=== PATIENT | female | born 1980 | race Two or more races ===

== ENCOUNTER 2025-04-19 08:47 | Outpatient (CLI) | payer MEDICAID ==
[~2025-04-19] VITALS: Ht 170.2 cm; Wt 108.0 kg
[2025-04-19] MEDS: REGADENOSON 0.4 MG/5 ML SYRG IV ONE ×2 (09:08→10:28)
--- NOTE | 2025-04-22 14:16 | DVHSR ---
APPROVED REPORT Exam: Nuclear Stress Test BMI: 0 Stress Test Details Stress Test: Pharmacologic stress testing performed using 0.4 mg of regadenoson per 5 mL given IV over 10 seconds. HR Resting HR: 76 bpm Max Heart Rate (APMHR): 175.155667 bpm Max HR Achieved: 115 bpm Target HR (85% APMHR): 148.257335 bpm % of APMHR: 65.71 Recovery HR: 80 bpm BP Resting BP: 126/85 mmHg Recovery BP: 122/72 mmHg ECG Resting ECG: Sinus Rhythm Clinical Reason for Termination: Completed protocol Nurse Comments Recieved pt. from [employer]. A/Ox4 on RA. 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 PIV flushes well. Reviewed POC. Pt. verbalized understanding of procedure including risks and side effects, agrees for stress testing. Lexiscan stress test performed per protocol. [employer] tech administered Cardiolite. Pt. tolerated well. Pt. stable, no change on exam. VS returned to baseline. Transferred to [employer] via wheelchair w/ tech. Stress ECG Conclusion lvef 78% normal perfusion scan NM EXAM: Myocardial Perfusion REST/STRESS Imaging Protocol: Rest Tc-99m/Stress Tc-99m 1 day Resting Data Rest SPECT myocardial perfusion imaging was performed in supine position 45 minutes following the intravenous injection of 9.9 mCi of Tc-99m Sestamibi. Time of rest injection: 09:15 Date: 04/19/2025 Time of rest imagin:00 Date: 04/19/2025 Administration Route: IV Administration Site: Left Hand Pharmacologic Stress Pharmacologic stress test was performed by injecting Regadenoson 0.4 mg IV push followed by the intravenous injection of 31.2 mCi of Tc-99m Sestamibi. Time of stress injection: 10:25 Date: 04/19/2025 Time of stress imagin:15 Date: 04/19/2025 Administration Route: IV Administration Site: Left Hand Gated Stress SPECT was performed 50 minutes after stress injection. The images were gated to evaluate regional wall motion and calculate left ventricular ejection fraction. Stress only was performed in the Supine position. Nuclear Conclusion Nuclear Findings: negative for ischemia lvef 78% normal perfusion scan
== END 2025-04-19 17:00 | disposition home or self-care (01) ==
LOC: XYW 08:47
PROVIDERS: ATTEND Specialist
DX: I25.10 Atherosclerotic heart disease of native coronary artery without angina pectoris (principal); R06.02 Shortness of breath; R42 Dizziness and giddiness
CPT/HCPCS: 78452; 93017; A9500; J2785